=== PATIENT | male | born 1965 | race Caucasian/White ===

== ENCOUNTER 2016-06-11 13:56 | Emergency (ER) | payer OTHER ==
[~2016-06-11] VITALS: Ht 167.6 cm; Wt 65.0 kg
[~2016-06-11 13:56] MED LIST: KEFLEX500 MG PO; MILK OF MAGN PO; NOHOMEMEDS; PERCOCET 5/31 TABLET PO
[2016-06-11] MEDS ORDERED: FLOMAX0.4 MG PO (16:57)
[2016-06-11 17:22] LABS: HEMATOCRIT 47.6 % (38.0-50.0); MCH 31.4 PG (29.0-34.0); MCHC 34.7 G/DL (30.0-36.0); MCV 90.7 FL (86-99); MEAN PLAT.VOLUME 10.8 uM^3 (9.0-12.4); PLATELET COUNT 197 K/uL (156-360); RBC DIS.WIDTH-CV 12.9 % (11.8-14.6); RBC DIS.WIDTH-SD 42.1 % (39-53); RED BLOOD COUNT 5.25 M/uL (4.00-5.50); WHITE BLOOD COUNT 11.3 K/uL (4.1-10.2)
[2016-06-11 17:33] LABS: CHLORIDE 106 mEq/L (99-109); POTASSIUM 4.6 mEq/L (3.7-5.4); SODIUM 139 mEq/L (136-147)
[2016-06-11 17:35] LABS: GLUCOSE 87 mg/dL (70-99)
[2016-06-11 17:36] LABS: ANION GAP 8 MEQ/L (2-14)
[2016-06-11 17:39] LABS: GFR ESTIMATE (CALCULATED) > 59 mL/min/
[2016-06-11 17:40] LABS: UREA NITROGEN (BUN) 16 mg/dL (9-23)
[2016-06-11 17:46] LABS: TROP-I INTERPRETATION NEGATIVE; TROPONIN-I < 0.01 ng/mL (0.0-0.30)
[2016-06-11] MEDS ORDERED: TESSALON PERLE100 MG PO (18:45)
[2016-06-11] MEDS ORDERED: VENTOLIN HFA18 GM IH (18:45)
[2016-06-11 18:47] LABS: TROP-I INTERPRETATION NEGATIVE; TROPONIN-I < 0.01 ng/mL (0.0-0.30)
[2016-06-11 19:33] VITALS: BP 119/87
== END 2016-06-11 19:34 | disposition home or self-care (01) ==
LOC: EME 13:56
PROVIDERS: Nurse Practitioner Family
DX: J06.9 Acute upper respiratory infection, unspecified (principal); R07.9 Chest pain, unspecified; F17.200 Nicotine dependence, unspecified, uncomplicated
CPT/HCPCS: 71020; 80048; 84484; 85027; 93005; 94640; 99281; 99284

== ENCOUNTER 2016-06-14 13:23 | Emergency (ER) | payer OTHER ==
[~2016-06-14] VITALS: Ht 167.6 cm; Wt 67.2 kg
[~2016-06-14 13:23] MED LIST changes: +FLOMAX0.4 MG PO; +TESSALON PERLE100 MG PO; +VENTOLIN HFA18 GM IH
[2016-06-14] MEDS ORDERED: AFRIN,GENASAL D15 ML BOTH NARES (15:37)
[2016-06-14] MEDS ORDERED: AUGMENTIN875 MG PO (15:37)
[2016-06-14 16:00] VITALS: BP 118/79
== END 2016-06-14 16:07 | disposition home or self-care (01) ==
LOC: EME 13:23
DX: J32.9 Chronic sinusitis, unspecified (principal); J06.9 Acute upper respiratory infection, unspecified; Z88.8 Allergy status to other drugs, medicaments and biological substances; F17.200 Nicotine dependence, unspecified, uncomplicated
CPT/HCPCS: 99281; 99284